=== PATIENT | male | born 1945 | race Caucasian/White ===

== ENCOUNTER 2023-10-04 11:39 | Outpatient (CLI) | payer MEDICARE | END 2023-10-04 11:40 | disposition home or self-care (01) | LOC: RAD 11:39 | PROVIDERS: ATTEND Nurse Practitioner Family | DX: M25.561 Pain in right knee (principal); M17.11 Unilateral primary osteoarthritis, right knee; M11.261 Other chondrocalcinosis, right knee; M25.461 Effusion, right knee ==